=== PATIENT | male | born 1985 | race African-American/Black ===

== ENCOUNTER 2016-11-25 12:41 | Emergency (ER) | payer MEDICAID ==
[~2016-11-25] VITALS: Ht 175.3 cm; Wt 77.0 kg
[2016-11-25] MEDS ORDERED: OXYCODONE HCL/ACETAMINOPHEN 5/325MG TABLET PO ONE (14:30)
[2016-11-25] MEDS ORDERED: LIDOCAINE HCL 1% 20ML VIAL (Pyxis) INJ MC ONE (14:30)
[2016-11-25 14:49] VITALS: BP 134/73
== END 2016-11-25 17:07 | disposition home or self-care (01) ==
LOC: ER 14:48
DX: S92.424A Nondisplaced fracture of distal phalanx of right great toe, initial encounter for closed fracture (principal); S91.211A Laceration without foreign body of right great toe with damage to nail, initial encounter; W22.8XXA Striking against or struck by other objects, initial encounter; Y93.B3 Activity, free weights; Y92.39 Other specified sports and athletic area as the place of occurrence of the external cause
CPT/HCPCS: 64450; 73630; 99284; J3490; X7700; Z7610; 29515